=== PATIENT | male | born 1955 | race Caucasian/White ===

== ENCOUNTER 2016-10-14 08:29 | Day surgery (SDC) | payer OTHER ==
[~2016-10-14 08:29] MED LIST: IBUPROFEN200 MG PO; LORTAB 5/500 501 TAB PO; METOPROLOL50 MG PO; MOTRIN600 MG PO; ZIJA PO
--- NOTE | 2016-10-14 10:01 | Operative Note ---
Colonoscopy (Jerry) Procedure date: 10/14/16 Date of : 59 Procedure:Colonoscopy Colonoscopy with cold snare polypectomy Indications: Mr. Patel is a 60-year-old gentleman who is here for initial screening colonoscopy. He reports no abdominal pain, weight loss, change in his bowel habits or rectal bleeding. He does have some "slow" bowel function. The patient reports no family history of colon cancer. Performing Provider: Nubia Edwards MD Referrring Provider: Javed Cotton M.D. Sedation: Fentanyl 100 mg IV/Versed 7 mg IV Procedure: Prior to the procedure, a history and physical exam was performed, and patient medications and allergies were reviewed. The risks and benefits of the procedure and the sedation options and risks were discussed with the patient. All questions were answered and informed consent was obtained. Patient identification and proposed procedure were verified by the physician and the nurse. The patient was placed in a left lateral decubitus position. Throughout the procedure, the patient's blood pressure, pulse, and oxygen saturations were monitored continuously. Findings: On digital rectal examination there was normal rectal tone. There were no external hemorrhoids. The prostate was 2+, smooth, soft, symmetric without nodules. The colonoscope was introduced through the anal canal to the rectum and advanced to the cecum. The ileocecal valve and appendiceal orifice were identified. The scope was advanced a short distance into the ileum which appeared grossly normal. The scope was then withdrawn into the colon. There were 3 colon polyps identified in the ascending colon 3. These ranged in size from 4 -6 mm and were all removed via cold snare polypectomy. The remaining cecum, ascending, transverse, descending, sigmoid and rectum were grossly normal. There were no other mucosal abnormalities identified. Upon retroflexion within the rectum there were grade 1 internal hemorrhoids. Impressions: 1. Diminutive colonic polyps 3 2. Grade 1 internal hemorrhoids Recommendations: I will follow up the polyp pathology and recommend repeat colonoscopy again in 5 years based upon the polyp histology. I would encourage fiber supplementation on a long-term daily maintenance basis. Complications: None EBL (ml): 0 at 1000
[2016-10-14 15:17] VITALS: BP 125/59
== END 2016-10-14 10:53 | disposition home or self-care (01) ==
LOC: LAB 08:29 → SDC 08:29
PROVIDERS: Internal Medicine Gastroenterology
PROC: 0DBK8ZX Excision of Ascending Colon, Via Natural or Artificial Opening Endoscopic, Diagnostic (ICD-10-PCS; principal; 2016-10-14 09:30)
DX: Z12.11 Encounter for screening for malignant neoplasm of colon (principal); D12.2 Benign neoplasm of ascending colon; K64.0 First degree hemorrhoids
CPT/HCPCS: G0103

== ENCOUNTER 2017-02-15 21:35 | Observation (INO) | payer OTHER ==
[~2017-02-15] VITALS: Ht 180.3 cm; Wt 112.5 kg
[2017-02-15 21:40] VITALS: BP 155/93
[2017-02-15] MEDS ORDERED: HCTZ/TRIAMTEREN1 CAP PO (21:48)
[2017-02-15 22:03] LABS: HEMOGLOBIN 14.6 g/dL (14.1-18.0); LYMPH # 1.2 K/mm3 (0.7-4.5); LYMPH % 13.2 % (10-50)
--- OUTSIDE RECORDS SUMMARY | 2017-02-15 22:10 | External Medical Summary Rpt | CCD ---
Author Author DAMIAN Address Unknown Phone Purpose Continuity of Care Document - 10-14-2016 through 2016
--- OUTSIDE RECORDS SUMMARY | 2017-02-15 22:11 | External Medical Summary Rpt ---
Author Author DAMIAN Charlton, [employer] Organization [employer] Address Unknown Phone Unavailable Results Prostate specific Ag [Mass/volume] in Cerebral spinal fluid Observa Value Referen Units Interpr Notes Date tion ce etation Range Prostate 0.0 - 4.0 ng/mL High FREE PSA Oct 14 specific SUGGESTED 2016 8:59 Ag TO AID AM [Mass/vol DIAGNOSIS ume] in Cerebral spinal fluid
--- OUTSIDE RECORDS SUMMARY | 2017-02-15 22:11 | External Medical Summary Rpt | CCD ---
Author Author [employer] Organization [employer] Address Unknown Phone Unavailable Purpose Continuity of Care Document - through 2016
--- OUTSIDE RECORDS SUMMARY | 2017-02-15 22:11 | External Medical Summary Rpt | CCD ---
Demographics Preferred Language Citizen Of [place] Marital Status Unknown Christianity Affiliation Unknown Race Unknown Ethnic Group Unknown Author Author , DAMIAN SALGADO Address Unknown Phone Immunization No patient found.
--- OUTSIDE RECORDS SUMMARY | 2017-02-15 22:11 | External Medical Summary Rpt | CCD ---
Demographics Preferred Language Bahraini Marital Status Unknown Buddhism Affiliation Unknown Race Unknown Ethnic Group Unknown Author Author , DAMIAN SALGADO Address Unknown Phone Immunization No patient found.
--- NOTE | 2017-02-15 22:22 | Emergency Room Report ---
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 N Clinical Suspician of Infection? N Mental Status: 1 - Regular (Normal Baseline) Sepsis Risk:Low Sepsis Risk Have you (or family members/close friends) recently traveled outside the [place]? N If Yes, where/when: Have you had exposure to infectious disease within the past month? N TB? Other? Specify: Source patient, RN notes reviewed, family, old records Exam Limitations no limitations Comment pt with increasing rt upper abd pain with nausea with no melena and episode of vomiting Cardiac Chest Pain Chest pain indicative of cardiac No Timing/Duration this evening Severity moderate ALLERGIES Coded Allergies: cobalt (10/09/16) cocamidopropyl betaine (02/15/17) Uncoded Allergies: RUBBER (08/10/13) Home Medications Reported Medications Hydrochlorothiazide W/Triamter (Triamterene-Hctz 37.5-25 MG Tb) 1 CAP PO DAILY Ibuprofen (Ibuprofen 200MG) 200 MG PO PRN PRN . Metoprolol Tartrate (Metoprolol) (Unknown Dose) PO DAILY History Medical History General CAD? No Angina: No [place]: No Hypertension? Yes Hyperlipidemia? No CHF? No DVT? No PE? No COPD? No Asthma? No Anemia? No GERD? No Gastric ulcers? No GI Bleed? No Hernia? No Thyroid Problems? No Hypothyroidism? No CVA? No Seizures? No Diabetes? No Renal Insuffiency? No End Stage Renal Disease? No UTI? No Stones? No GB Disease: No Nephritic Syndrome? No Asplenia? No Hepatitis? No Sickle Cell Disease? No Arthritis? Yes Migraines? No Cataracts? No Glaucoma? No MRSA? No HIV? No TB? No Anxiety? No Depression? No Cancer? No More? No Immunization Hx DT/Tetanus NOT SURE Surgical Hx Previous Surgery?Y Back Surgery APPENDECTOMY Family History Family Hx Diabetes Yes Hypertension Yes Hyperlipidemia Yes Cancer Yes TB Yes Social History Smoking Hx Smoker: Never Smoker Tobacco: No Packs/day < 1 Pack Alcohol Alcohol: No Drugs none Review of Systems All Other Systems Reviewed and Negative Constitutional denies fever Eyes denies drainage ENT denies: ear discharge, epistaxis, throat pain. Respiratory denies cough, denies shortness of breath, denies wheezing Cardiovascular denies chest pain, denies syncope Gastrointestinal see HPI, abdominal pain, denies diarrhea, nausea, denies vomiting Genitourinary denies: dysuria, frequency, hesitancy, hematuria. Musculoskeletal denies back pain, denies joint pain, denies joint swelling, denies neck pain Skin denies rash Psychiatric/Neurological denies headache, denies seizure Physical Exam Vital Signs Vital Signs Date Time Temp Pulse Resp B/P Pulse O2 O2 Flow FiO2 Ox Delivery Rate 02/15 2253 60 20 147/84 95 02/15 2225 20 02/15 2140 98.3 61 18 155/93 99 - WBC >12,000 or <4,000 or 10% bands? 2 or more SIRS Criteria Met? B/P:147/84 MAP:113 Creatinine >2.0? UA output<0.5ml/kg/hr for 2 hrs? Platelet count >100,000? Lactate >2.0mmol/1? INR >1.2 or PTT > than 60 sec? Evidence of Organ Dysfunction? Provider documented clinical suspician of infection? N Sepsis Criteria Count: 0 Sepsis Risk: Low Sepsis Risk General Appearance no apparent distress Eye Exam - bilateral eye PERRL, bilateral eye EOMI Ear, Nose, Throat normal ENT inspection Neck supple Respiratory Status No: respiratory distress. Lung Sounds bilateral: lungs clear. Cardiovascular regular rate/rhythm, systolic murmur Peripheral Pulses Pulses normal Yes Gastrointestinal soft, no organomegaly, no pulsatile mass, no guarding, no rebound, tenderness, pos murphys sign Back no CVA tenderness Extremities normal inspection Strength 4 Upper Ext (L), 4 Upper Ext (R), 4 Lower Ext (L), 4 Lower Ext (R) Neurologic alert, informatica architect II-XII nml as tested, no motor/sensory deficits Reflexes Reflexes normal Yes Mental status normal mood/affect Skin intact Medical Decision Making LABS/Meds/Orders Pt receiving controlled substance in ED? No Results/Orders Laboratory Tests 02/15/172152: Troponin I < 0.02 02/15/172152: Sodium 133 L, Potassium 3.4 L, Chloride 98, Carbon Dioxide 27, BUN 15, Creatinine 1.2, Estimated Creat Clear 108, Estimated GFR (MDRD) 62, Glucose 125 H, Calcium 9.3, Total Bilirubin 0.5, AST 24, ALT 40, Alkaline Phosphatase 64, Total Protein 7.7, Albumin 4.0, Globulin 3.7 H, Albumin/Globulin Ratio 1.1, Amylase 87, Lipase 368, WBC 9.0, RBC 4.78, Hgb 14.6, Hct 41.3 L, MCV 86.4, RDW 12.6, Plt Count 306, MPV 8.1, Gran % 78.3, Gran # 7.1, Lymphocytes % 13.2, Monocytes % 6.0, Eosinophils % 2.1, Basophils % 0.4, Lymphocytes # 1.2, Monocytes # 0.5, Eosinophils # 0.2, Basophils # 0.0, PUBS MCHC 35.4, MCH 30.6 Current Medication Orders Sig/Rosio Start time Last Medication Dose Route Stop Time Status Admin Famotidine 20 MG ONCE ONE 02/155 DC IV 02/15 2346 Metoclopramide HCl 10 MG ONCE ONE 02/15 2345 DC IVP 02/15 2346 Sodium Chloride 8 ML ONCE ONE 02/15 2345 DC IV 02/15 2346 Hydromorphone HCl 1 MG ONCE ONE 02/15 2230 DC 02/15 IV 02/15 2231 2225 Promethazine HCl 12.5 MG ONCE ONE 02/15 2230 DC 02/15 IV 02/15 2231 2244 Sodium Chloride 25 ML ONCE ONE 02/15 2230 DC 02/15 IV 02/15 2244 2244 Hydromorphone HCl 0 .STK-MED ONE 02/16 2224 DC .ROUTE Sodium Chloride 25 ML .STK-MED ONE 02/16 2224 DC IV Promethazine HCl 0 .STK-MED ONE 02/15 2223 DC .ROUTE Ondansetron HCl 4 MG ONCE ONE 02/15 2215 DC 02/15 IV 02/16 2216 221 Ondansetron HCl 0 .STK-MED ONE 02/15 2214 DC .ROUTE Ondansetron HCl 0 .STK-MED ONE 02/16 2212 DC .ROUTE Sodium Chloride 10 ML PRN PRN 02/15 2200 AC IV 02/16 2150 Orders Procedure Date/time Status DIET-NOTHING BY MOUTH 02/16 B Active Decision to admit 02/[address] ABD & PELVIS W/O CONTRAST 02/15 2206 Active TROPONIN I 02/[address] ABD/PELVIS REQ 02/15 2151 Active IV SALINE LOCK 02/15 2151 Active URINALYSIS/COMPLETE 02/15 2151 Active LIPASE 02/15 2151 Complete CBC WITH AUTO DIFF 02/15 2151 Complete CHEM 12 PROFILE 02/15 2151 Complete AMYLASE 02/15 2151 Complete XRAY/CT/US XRAY/CT/US CT abdomen, pelvis CT interpretation by discussed w/radiologist Time results known: 2336 CT Results normal/NAD Departure Departure Time of Disposition 2342 Disposition Still a Patient Clinical Impression Primary Impression: Abdominal pain Qualifiers: Abdominal location: right upper quadrant Qualified Code: R10.11 - Right upper quadrant pain Condition STABLE Referrals Jayden Cotton MD (Family) discussed with dr hua ED Critical Care Critical Care No at [id number]
--- OUTSIDE RECORDS SUMMARY | 2017-02-15 23:54 | External Medical Summary Rpt | CCD ---
Demographics Preferred Language Monegasque Marital Status Unknown Sabianist Affiliation Unknown Race Unknown Ethnic Group Unknown Author Author , DAMIAN SALGADO Address Unknown Phone Immunization No patient found.
--- OUTSIDE RECORDS SUMMARY | 2017-02-15 23:54 | External Medical Summary Rpt | CCD ---
Demographics Preferred Language Niuean Marital Status Unknown Zoroastrianism Affiliation Unknown Race Unknown Ethnic Group Unknown Author Author , DAMIAN SALGADO Address Unknown Phone Immunization No patient found.
--- OUTSIDE RECORDS SUMMARY | 2017-02-15 23:54 | External Medical Summary Rpt | CCD ---
Author Author , DAMIAN Organization [employer] Address Unknown Phone Purpose Continuity of Care Document - 10-14-2016 through 2016 Results Labs Lab Lab Date Result Refere Interp Status Commen Order Detail nces retati t Range on CBC w auto diff (02-15-2017 21:53) Automat = 0.0 0-0.2 complet ed 017 K/MM3 ed blood 21:53 basophi l count (count/ vo Baso % = 0.4 % 0.1-2.0 complet 017 ed 21:53 Automat = 0.2 0.0-0.4 complet ed 017 K/mm3 ed blood 21:53 eosinop hil count Automat = 2.1 % 0.1-12. complet ed 017 0 ed blood 21:53 eosinop hils/10 0 leukocy t Blood = 7.1 1.3-8.0 complet granulo 017 K/mm3 ed cytes 21:53 automat ed count (numb Granulo = 78.3 37.0-80 complet cyte 017 % .0 ed percent 21:53 age Blood = 41.3 42.0-52 complet hematoc 017 % .0 ed rit 21:53 (volume fractio n) Blood = 14.6 14.1-18 complet hemoglo 017 g/dL .0 ed bin 21:53 measure ment (mass/v olum Absolut = 1.2 0.7-4.5 complet e 017 K/mm3 ed lymphoc 21:53 yte count Lymphoc = 13.2 10-50 complet yte 017 % ed count, 21:53 blood, automat ed Mean = 30.6 27-31.2 complet corpusc 017 pg ed ular 21:53 hemoglo bin (MCH) determ Automat = 35.4 31.8-35 complet ed 017 g/dl .4 ed erythro 21:53 cyte mean corpusc ular h Automat = 86.4 82.2-97 complet ed 017 fl .8 ed erythro 21:53 cyte mean corpusc ular v Absolut = 0.5 0.1-1.0 complet e 017 K/mm3 ed monocyt 21:53 e count Jack % = 6.0 % 1.7-9.3 complet 017 ed 21:53 Automat 2 = 8.1 7.4-10. complet ed 017 fl 4 ed blood 21:53 platele t mean volume judy Blood = 306 142-424 complet platele 017 K/mm3 ed t count 21:53 Red = 4.78 4.6-6.2 complet blood 017 M/mm3 ed cell 21:53 count Automat = 12.6 11.5-17 complet ed 017 % .5 ed erythro 21:53 cyte distrib ution width Blood = 9.0 4.8-10. complet leukocy 017 K/MM3 8 ed elmo 21:53 count (number /volume ) Amylase ser/plas (02-15-2017 21:53) Amylase 2 = 87 25-115 complet 017 U/L ed ser/ioana 21:53 s Comprehensive metabolic panel (02-15-2017 21:53) Serum 02-15-2 = 1.1 1.1-1.8 complet or 017 ed plasma 21:53 albumin /globul in mass ra Serum 2 = 4.0 3.4-5.0 complet or 017 gm/dL ed plasma 21:53 albumin measure ment (mas Serum 02-15-2 = 64 46-116 complet or 017 U/L ed plasma 21:53 alkalin e phospha tase judy Serum 2 = 0.5 0.2-1.0 complet or 017 mg/dL ed plasma 21:53 total bilirub in measure m Serum 2 = 15 7-18 complet or 017 mg/dL ed plasma 21:53 urea nitroge n measure men Serum 11-18-2 = 9.3 8.5-10. complet or 017 mg/dL 1 ed plasma 21:53 calcium measure ment (mas Serum 18-2 = 98 98-107 complet or 017 mmoL/L ed plasma 21:53 chlorid e measure ment (mo Carbon 02-15-2 = 27 21.0-32 complet dioxide 017 mmoL/L .0 ed 21:53 measure ment Serum 18-2 = 1.2 0.70-1. complet or 017 mg/dL 30 ed plasma 21:53 creatin ine measure ment ( Estimat 02-15-2 = 108 50-200 complet ion of 017 ML/MIN ed creatin 21:53 ine renal clearan ce Estimat 2 = 62 >60 complet ed 017 ML/MIN ed glomeru 21:53 lar filtrat ion rate (GF Comment: REFERENCE RANGE: >60 ML/MIN/1.73 SQUARE METERS Comment: If this patient is -[place]imbabwean, then multiply the Comment: result by 1.210. Serum 18-2 = 3.7 1.3-3.2 complet globuli 017 gm/dL ed n 21:53 measure ment (mass/v olume) Serum 18-2 = 125 74-106 complet or 017 mg/dL ed plasma 21:53 glucose measure ment (mas Serum 02-15-2 = 3.4 3.5-5.1 complet potassi 017 mmoL/L ed um 21:53 measure ment Serum 18-2 = 133 136-145 complet sodium 017 mmoL/L ed measure 21:53 ment Serum 02-15-2 = 24 15-37 complet or 017 U/L ed plasma 21:53 asparta te aminotr ansfera ALT 02-15-2 = 40 12-78 complet (SGPT) 017 U/L ed ser/ioana 21:53 s Protein 02-15-2 = 7.7 6.4-8.2 complet total 017 gm/dL ed ser/ioana 21:53 s Lipase measurement (02-15-2017 21:53) Lipase -18-2 = 368 73-393 complet measure 017 U/L ed ment 21:53 Serum or plasma troponin i.cardiac measu (02-15-2017 21:53) Serum 11-18-2 < 0.02 0.00-0. complet or 017 ng/mL 06 ed plasma 21:53 nitin martinez i.cardi ac measu
--- OUTSIDE RECORDS SUMMARY | 2017-02-15 23:54 | External Medical Summary Rpt | CCD ---
Author Author , DAMIAN Organization [facility] Address Unknown Phone [email or web address] Purpose Continuity of Care Document - 10-14-2016 [...] 017 K/mm3 ed monocyt 21:53 e count [place] % = 6.0 % 1.7-9.3 complet 017 [...] SQUARE METERS Comment: If this patient is -[place]uneian, then multiply the Comment: result by 1.210. [...]
--- OUTSIDE RECORDS SUMMARY | 2017-02-15 23:55 | External Medical Summary Rpt ---
Author Author SAMLIVIER Charlton, [employer] Organization [employer] Address Unknown Phone Unavailable Results Amylase [Enzymatic activity/volume] in Serum or Plasma Observa Value Referen Units Interpr Notes Date tion ce etation Range Amylase 25 - 115 U/L Normal No Feb 15 [Enzymati informati 2017 9:53 c on in PM activity/ source volume] data in Serum or Plasma Comprehensive metabolic 2000 panel in Serum or Plasma Observa Value Referen Units Interpr Notes Date tion ce etation Range Albumin/G 1.1 - 1.8 No Normal No Feb 15 lobulin informati informati 2016 9:53 [Mass on in on in PM ratio] in source source Serum or data data Plasma Albumin 3.4 - 5.0 gm/dL Normal No Feb 15 [Mass/vol informati 2016 9:53 ume] in on in PM Serum or source Plasma data Alkaline 46 - 116 U/L Normal No Feb 15 phosphata informati 2016 9:53 se on in PM [Enzymati source c data activity/ volume] in Serum or Plasma Bilirubin 0.2 - 1.0 mg/dL Normal No Feb 15 .total informati 2016 9:53 [Mass/vol on in PM ume] in source Serum or data Plasma Urea 7 - 18 mg/dL Normal No Feb 15 nitrogen informati 2016 9:53 [Mass/vol on in PM ume] in source Serum or data Plasma Calcium 8.5 - mg/dL Normal No Feb 15 [Mass/vol 10.1 informati 2017 9:53 ume] in on in PM Serum or source Plasma data Chloride 98 - 107 mmoL/L Normal No Feb 15 [Moles/vo informati 2016 9:53 lume] in on in PM Serum or source Plasma data Carbon 21.0 - mmoL/L Normal No Feb 15 dioxide, 32.0 informati 2017 9:53 total on in PM [Moles/vo source lume] in data Serum or Plasma Creatinin 0.70 - mg/dL Normal No Feb 15 e 1.30 informati 2017 9:53 [Mass/vol on in PM ume] in source Serum or data Plasma Creatinin 50 - 200 ML/MIN Normal No Feb 15 e renal informati 2016 9:53 clearance on in PM source predicted data by Cockcroft -Gault formula Estimated >60 ML/MIN No REFERENCE Feb 15 informati RANGE: 2017 9:53 glomerula on in >60 PM r source ML/MIN/1. filtratio data 73 SQUARE n rate METERSIf (GF this patient is -A merican, then multiply theresult by 1.210. Globulin 1.3 - 3.2 gm/dL High No Feb 15 [Mass/vol informati 2016 9:53 ume] in on in PM Serum source data Glucose 74 - 106 mg/dL High Feb 15 [Mass/vol informati 2016 9:53 ume] in on in PM Serum or source Plasma data Potassium 3.5 - 5.1 mmoL/L Low No Feb 15 informati 2016 9:53 [Moles/vo on in PM lume] in source Serum or data Plasma Sodium 136 - 145 mmoL/L Low No Feb 15 [Moles/vo informati 2016 9:53 lume] in on in PM Serum or source Plasma data Aspartate 15 - 37 U/L Normal No Feb 15 informati 2016 9:53 aminotran on in PM sferase source [Enzymati data c activity/ volume] in Serum or Plasma Alanine 12 - 78 U/L Normal No Feb 15 aminotran informati 2016 9:53 sferase on in PM [Enzymati source c data activity/ volume] in Serum or Plasma Protein 6.4 - 8.2 gm/dL Normal Feb 15 [Mass/vol informati 2016 9:53 ume] in on in PM Serum or source Plasma data Lipase [Enzymatic activity/volume] in Serum or Plasma Observa Value Referen Units Interpr Notes Date tion ce etation Range Lipase 73 - 393 U/L Normal No Feb 15 [Enzymati informati 2016 9:53 c on in PM activity/ source volume] data in Serum or Plasma CBC W Auto Differential panel in Blood Observa Value Referen Units Interpr Notes Date tion ce etation Range Basophils 0 - 0.2 K/MM3 Normal No Feb 15 informati 2016 9:53 [#/volume on in PM ] in source Blood by data Automated count Basophils 0.1 - 2.0 % Normal No Feb 15 informati 2016 9:53 leukocyte on in PM s in source Blood by data Automated count Eosinophi 0.0 - 0.4 K/mm3 Normal No Feb 15 ls informati 2016 9:53 [#/volume on in PM ] in source Blood by data Automated count Eosinophi 0.1 - % Normal No Feb 15 ls/100 12.0 informati 2016 9:53 leukocyte on in PM s in source Blood by data Automated count Granulocy 1.3 - 8.0 K/mm3 Normal No Feb 15 elmo informati 2016 9:53 [#/volume on in PM ] in source Blood by data Automated count Granulocy 37.0 - % Normal No Feb 15 elmo/100 80.0 informati 2016 9:53 leukocyte on in PM s in source Blood by data Automated count Hematocri 42.0 - % Low No Feb 15 t [Volume 52.0 informati 2016 9:53 on in PM Fraction] source of Blood data Hemoglobi 14.1 - g/dL Normal No Feb 15 n 18.0 informati 2016 9:53 [Mass/vol on in PM ume] in source Blood data Lymphocyt 0.7 - 4.5 K/mm3 Normal No Feb 15 es informati 2016 9:53 [#/volume on in PM ] in source Unspecifi data ed specimen by Automated count Lymphocyt 10 - 50 % Normal No Feb 15 es informati 2016 9:53 [#/volume on in PM ] in source Unspecifi data ed specimen by Automated count Erythrocy 27 - 31.2 pg Normal No Feb 15 te mean informati 2016 9:53 corpuscul on in PM ar source hemoglobi data n [Entitic mass] Erythrocy 31.8 - g/dl Normal No Feb 15 te mean 35.4 informati 2016 9:53 corpuscul on in PM ar source hemoglobi data n concentra tion [Mass/vol ume] by Automated count Erythrocy 82.2 - fl Normal No Feb 15 te mean 97.8 informati 2016 9:53 corpuscul on in PM ar volume source [Entitic data volume] by Automated count Monocytes 0.1 - 1.0 K/mm3 Normal No Feb 15 informati 2016 9:53 [#/volume on in PM ] in source Blood by data Automated count Monocytes 1.7 - 9.3 % Normal No Feb 15100 informati 2017 9:53 leukocyte on in PM s in source Blood by data Automated count Platelet 7.4 - fl Normal No Feb 15 mean 10.4 informati 2017 9:53 volume on in PM [Entitic source volume] data in Blood by Automated count Platelets 142 - 424 K/mm3 Normal No Feb 15 informati 2017 9:53 [#/volume on in PM ] in source Blood data Erythrocy 4.6 - 6.2 M/mm3 Normal No Feb 15 elmo informati 2016 9:53 [#/volume on in PM ] in source Amniotic data fluid Erythrocy 11.5 - % Normal No Feb 15 te 17.5 informati 2017 9:53 distribut on in PM ion width source [Entitic data volume] by Automated count Leukocyte 4.8 - K/MM3 Normal No Feb 15 s 10.8 informati 2016 9:53 [#/volume on in PM ] in source Blood data Prostate specific Ag [Mass/volume] in Cerebral spinal fluid Observa Value Referen Units Interpr Notes Date tion ce etation Range Prostate 0.0 - 4.0 ng/mL High FREE PSA Oct 14 specific SUGGESTED 2017 8:59 Ag TO AID AM [Mass/vol DIAGNOSIS ume] in Cerebral spinal fluid
[2017-02-16] VITALS (8 sets, daily range): BP systolic 115–160; BP diastolic 47–99
[2017-02-16] MEDS ORDERED: METOPROLOL25 MG PO (05:37)
[2017-02-16 06:15] LABS: HEMOGLOBIN 14.6 g/dL (14.1-18.0); LYMPH # 0.5 K/mm3 (0.7-4.5); LYMPH % 4.9 % (10-50)
[2017-02-16 06:50] LABS: NEUTROPHILS 78 % (42-76)
--- NOTE | 2017-02-16 11:49 | RADIOLOGY REPORT PS360 ---
US RUQ-(ABD LTD)1ORGAN/QUAD/FU Ordering Physician: Jayden Cotton MD Patient Age: 61 years: Male HISTORY: RUQ abd pain nausea vomiting epigastric pain TECHNIQUE: Ultrasound right upper quadrant COMPARISON :CT abdomen pelvis from yesterday 02/15/2017 as well as 07/14/2013 FINDINGS PANCREAS:. Unremarkable. No fluid collections no ductal dilatation. LIVER.: No focal lesions. Subtle fatty liver changes throughout. No definitive biliary ductal dilatation. Upper normal Central biliary ducts Generous COMMON DUCT/borderline dilated, measuring 7.2 mm at hilum of liver. Borderline dilated GALLBLADDER.: Images suggest shadowing Gallstone at deep into the neck of gallbladderThis region difficult to image given is position at neck of gallbladder..- This suspect gallstone measures 1.5- 1.7 cm. .... Diffuse prominent gallbladder wall thickening noted as was also suggested on CT.... On ultrasound gallbladder wall measuring 5 up to 6 mm, in some areas. Also appears to be a scant developing pericholecystic fluid at anterior gallbladder fossa,-between gallbladder & liver. Generous thick sludge also noted layering at dependent gallbladder... Suggest follow-up bilirubin and alkaline phosphatase RIGHT KIDNEY 11.2 cm length. Cortex well-maintained with no hydronephrosis or mass. IMPRESSION: -------- 1. Images suggest Gallstone deep at the neck of gallbladder-. Difficult to visualize region of the gallbladder neck but suspect shadowing due to over 1.5 cm stone deep into neck of gallbladder.... Also prominent thick sludge at gallbladder noted . 2.*Diffuse gallbladder wall thickening. Suspect early pericholecystic fluid.-Overall features suggesting developing Acute CHOLECYSTITIS.. . 3. Generous caliber Common duct, borderline/mild dilatation 7.2 mm hilum of liver . No definite intrahepatic bili ductal dilatation otherwise evident (Follow-up alkaline phosphatase & bilirubin laboratory suggestedWith the above findings)
--- NOTE | 2017-02-16 12:12 | RADIOLOGY REPORT PS360 ---
CT ABD PELVIS W/O CONTRAST Ordering Physician: Jayden Cotton MD Patient Age: 61 years: Male HISTORY: PAIN Nausea vomiting epigastric pain. Prior Appendectomy TECHNIQUE: Helical CT scanning performed at of pelvis with no oral nor IV contrast utilized. Sagittal coronal reconstructions on CT workstation neck field COMPARISON :June 2013 CT abdomen pelvis. FINDINGS Lung bases appear clear with no active disease. Heart normal size. Tiny stable 4 mm nodular density at the right middle lobe axial image 8 no significant change since 2014. Support benign character. Small less than 5 mm Calcified granuloma axial image 15 RML just above right hemidiaphragm anteriorly. Abdomen pelvis with the lack of oral and IV contrast decreases sensitivity. Gallbladder: [Suggestion of diffuse gallbladder wall thickening, with slightly hazy appearance the wall. Appearance Raises concern regarding developing cholecystitis. No calcified stones are identified by CT but suspect sludge. Gallbladder mildly distended measuring 10 cm maximum length.. Axial image 49, 48. Recommend gallbladder ultrasound. Liver. No significant findings. No intra-axial bili ductal dilatation.. No change since 2014. Pancreas. Stable. Unremarkable. Adrenals unremarkable spleen. Spleen: Borderline to mild splenomegaly.. 16 cm AP x 14 cm length X 7 cm transverse.. But no change in the spleen since 2014 tract Kidneys. No urinary tract calculi nor obstruction Urinary bladder unremarkable. Enlarged prostate measures nearly 6.5 cm cm transverse . No retroperitoneal nor mesenteric nor pelvic adenopathy. GI TRACT.. A 6 x 8 mm calcification just adjacent to the base the appendix noted but it does not appear to be within the appendix. More likely calcified node rather than appendicolith. The appendix itself is brody.. No inflammation here. Minimal stool is seen throughout the large bowel. Small bowel unremarkable. Stomach unremarkable. Upper normal wall thickness distal esophagus/GE junction. Osseous. Degenerative disc space narrowing and spondylosis. L5/S1 again noted similar to previous study as is the spinal stenosis at L4/5 due to spondylotic disc and generous posterior element hypertrophy. . IMPRESSION: ...... 1.. Suspect developing cholecystitis. Mildly dilated gallbladder w/ diffuse slightly hazy gallbladder wall thickening. No calcified stones evident by CT but notable sludge in gallbladder. Recommend gallbladder ultrasound. . 2. Other nonacute observations: ... Enlarged prostate warrants correlation ..... Borderline to minor splenomegaly with no significant change ... Lumbar spondylosis with developing spinal stenosis L4/5 Sury:. Sent to [facility] [place] [facility] discrepancies. (Gallbladder findings.)
--- NOTE | 2017-02-16 12:18 | PHARMACY CLINIC NOTE ---
Patient Demographics Patient Demographics Admission date: 02/16/17 Date: 02/16/17 Time: 1217 Allergies Coded Allergies: cobalt (10/09/16) cocamidopropyl betaine (02/15/17) Uncoded Allergies: RUBBER (08/10/13) HEIGHT- FT: 5 IN: 11.00 K.521 VTE General Information Labs: Laboratory Tests 02/16 02/15 0550 2153 Hematology Hgb (14.1 - 18.0 g/dL) 14.6 14.6 Hct (42.0 - 52.0 %) 43.1 41.3 L Plt Count (142 - 424 K/mm3) 274 306 Disclaimer The following section includes nursing documentation that has been pulled in for pharmacy review. Patient's VTE score: 2 Patient's VTE Risk: VERY LOW RISK Clinical trial participant? No VTE prophylaxis [id number] VTE prophylaxis ordered? Yes Type of prophylaxis/treatment: MARLA at 1217
--- NOTE | 2017-02-16 13:57 | ACUTE CARE PROGRESS NOTE (QUA) ---
Progress Notes Subjective Date 02/16/17 Time 1354 Note Admitted with RUQ abdominal pain. US today suggests stone in gallbladder neck and cholecystitis. circulation tender RUQ. Objective Findings Last VS-Temp:98.2 B/P:133/47 Pulse:72 Resp:20 SaO2:97 ROOM AIR Last weight lbs:248 oz:1 K.521 Method:Bed Scales Exam General appearance: alert, no acute distress Cardiovascular: regular rate & rhythm Respiratory: wearing CPAP ABD: soft, tenderness (RUQ) Assessment/Plan Problem List 1. Abdominal pain 2. Cholecystitis with cholelithiasis Patient condition Stable Plan: consult surgeon This inpt stay is expected to cross 2 MNs from start of care Yes at 1262
--- NOTE | 2017-02-16 13:57 | ACUTE CARE PROGRESS NOTE (QUA) ---
Progress Notes Subjective Date 02/16/17 Time 1354 Note Admitted with RUQ abdominal pain. US today suggests stone in gallbladder neck and cholecystitis. unit tender RUQ. Objective Findings Last VS-Temp:98.2 B/P:133/47 Pulse:72 Resp:20 SaO2:97 ROOM AIR Last weight lbs:248 oz:1 K.521 Method:Bed Scales Exam General appearance: alert, no acute distress Cardiovascular: regular rate & rhythm Respiratory: wearing CPAP ABD: soft, tenderness (RUQ) Assessment/Plan Problem List 1. Abdominal pain 2. Cholecystitis with cholelithiasis Patient condition Stable Plan: consult surgeon This inpt stay is expected to cross 2 MNs from start of care Yes at 3576
--- NOTE | 2017-02-16 14:34 | HISTORY AND PHYSICAL REPORT ---
History and Physical ([facility]) Date of admission: 02/16/17 Chief complaint: Abdominal pain History: History of Present Illness: 61 year old male patient of [facility] presented to the ER of [facility] complaining of a 3 or 4 day history of upper abdominal pain. The pain starts in the middle of his upper abdomen and radiates to the right side. It seems to be worse after he eats and he has had some nausea and vomited once. Patient has had no previous episodes. Past Medical History: Medical History: CAD? No Angina: No MT: No Hypertension? Yes Hyperlipidemia? No CHF? No DVT? No PE? No COPD? No Asthma? No Anemia? No GERD? No Gastric ulcers? No GI Bleed? No Hernia? No Thyroid Problems? No Hypothyroidism? No CVA? No Seizures? No Diabetes? No Renal Insuffiency? No UTI? No Stones? No GB Disease: No Nephritic Syndrome? No Asplenia? No Hepatitis? No Sickle Cell Disease? No Arthritis? Yes Migraines? No Cataracts? No Glaucoma? No MRSA? No HIV? No TB? No Anxiety? No Depression? No Cancer? No More? Yes Additional hx: Sleep apnea Surgical history: Previous Surgery?Y Back Surgery APPENDECTOMY Medications: Reported Medications Hydrochlorothiazide W/Triamter (Triamterene-Hctz 37.5-25 MG Tb) 1 TAB PO DAILY Metoprolol Tartrate (Metoprolol) 50 MG PO DAILY Ibuprofen (Ibuprofen 200MG) 200 MG PO PRN PRN PAIN Allergies: Coded Allergies: cobalt (10/09/16) cocamidopropyl betaine (02/15/17) Uncoded Allergies: RUBBER (08/10/13) Family History: Family history: Postive for: DM, HTN. Social History: Smoking Hx Tobacco: No Smoker: Former Smoker Type: Cigarettes Packs/day: 1 1/2 - 2 Packs Are you exposed to second hand No Alcohol: Alcohol: No Hx of Drug Use: Drug Use? No Review of Systems: Patient unresponsive? No Constitutional No: chills. ENT No: hearing loss. Cardiovascular No: chest pain. Respiratory No: productive cough (sputum). GI No: diarrhea. (male) No: frequency. Skin No: rash. Neurological No: dizziness. Eyes No: discharge. Musculoskeletal No: joint pain. Psychiatric No: insomnia. Physical Exam: Vital signs: 1ST Vital Signs Result Date Time Pulse Ox 99 02/16 2140 B/P 155/93 02/16 2140 Temp 98.3 02/16 2140 Pulse 61 02/16 2140 Resp 18 02/16 2140 O2 Delivery ROOM AIR 02/16 50 Exam: General appearance: alert, awake, no acute distress Eyes: anicteric, conjunctiva clear ENT: mucous membranes moist Neck: supple Cardiovascular: regular rate & rhythm Respiratory: chest non-tender ABD: normal bowel sounds, soft, tenderness (RUQ) Extremities: no peripheral edema Skin: normal color, warm Neuro: intact, no focal deficit Radiology results: Results: RUQ U/S abnormal Diagnosis(es): 1. Abdominal pain Status: Acute 2. Cholecystitis with cholelithiasis Status: Acute 3. Nausea & vomiting Status: Acute 4. HTN (hypertension) Status: Chronic 5. Sleep apnea Status: Chronic Plan: Patient admitted for further treatment, surgery consulted due to abnormal RUQ U/ S, will give clear liquids now. at 1433
--- NOTE | 2017-02-16 15:53 | CONSULT NOTE ---
See Addendum Standard Demographics Patient Demo Date of Consultation: 02/16/17 Referring Provider: Homer Segovia MD Reason for Consultation: calculus cholecystitis PRIMARY DIAGNOSIS: ABDOMINAL PAIN Allergies: Coded Allergies: cobalt (10/09/16) cocamidopropyl betaine (02/15/17) Uncoded Allergies: RUBBER (08/10/13) History of Present Illness Chief Complaint: Upper abdominal pain and sinus infection History of Present Illness: This is a 61-year-old gentleman seen in consultation from Dr. Segovia for evaluation regarding acute cholecystitis. His primary care provider is Dr. Cotton. He was admitted after presenting to the emergency department with increasing pain in the upper abdomen, intermittent nausea, and a worsening sinus infection. He states that his symptoms have been progressing over the past 3-4 days. No jaundice. No fevers. One episode of emesis. Evaluation has included a CT scan, as well as an ultrasound that revealed mild gallbladder wall thickening and a likely 1.7 cm stone in the neck the gallbladder. His white blood cell count has been normal; however, he does have somewhat of a LEFT shift. Liver function tests, amylase, and lipase are all normal. Past Medical History Reports: hypertension. Surgical History Previous Surgery?Y Back Surgery APPENDECTOMY Allergies Coded Allergies: cobalt (10/09/16) cocamidopropyl betaine (02/15/17) Uncoded Allergies: RUBBER (08/10/13) Medications: Reported Medications Hydrochlorothiazide W/Triamter (Triamterene-Hctz 37.5-25 MG Tb) 1 TAB PO DAILY Metoprolol Tartrate (Metoprolol) 50 MG PO DAILY Ibuprofen (Ibuprofen 200MG) 200 MG PO PRN PRN PAIN Family history Postive for: DM, HTN. Smoking Hx Tobacco: No Smoker: Former Smoker Type: Cigarettes Packs/day: 1 1/2 - 2 Packs Are you/the child exposed to second-hand smoke: No Alcohol Alcohol: No Hx of Drug Use Drug Use? No Review of Systems Constitutional No: chills. Skin No: bruising. Immune/allergy No: anaphalaxis. Eyes No: blurry vision. ENT Positive for: nasal congestion, sinus problems. Respiratory No: pneumonia. Cardiovascular No: palpitations. GI No: dysphagia, hematemeis, hematochezia. (male) No: hematuria. Heme No: petechia. Endocrine No: polydipsia. Neurological No: change in LOC. Psychiatric No: anxious. Physical Exam VS/I&O Vital Signs Date Time Temp Pulse Resp B/P Pulse O2 O2 Flow FiO2 Ox Delivery Rate 02/16 1541 99.6 84 20 145/99 95 ROOM AIR 02/16 0836 20 02/16 0800 98.2 72 20 133/47 97 02/16 0754 98.2 72 20 133/47 97 ROOM AIR 02/16 0500 98.4 68 20 160/89 95 ROOM AIR 02/16 0323 18 02/16 0121 98.3 63 18 158/73 02/16 0050 63 02/16 0050 99 ROOM AIR 02/16 0050 97.5 65 18 144/86 97 ROOM AIR 02/16 0036 98.3 63 18 158/73 99 02/16 0005 98.3 63 18 158/73 99 02/15 2253 60 20 147/84 95 02/15 2225 20 02/15 2140 98.3 61 18 155/93 99 I&O 02/16 0700 Intake Total 45 Output Total Balance 45 Intake, IV 45 Patient 112.521 kg Weight Exam General appearance no acute distress Respiratory no distress Cardiovascular regular rate and rhythm Abdomen soft (TTP in RUQ/RMQ/Epigastrum) Plan Plan: Impression: Developing acute calculus cholecystitis Sinus infection Plan: Cholecystectomy in the near future. The patient does not require emergent surgery; however, he would likely benefit from intervention within the week ( within 48-72 hours preferable). Continue antibiotic coverage for cholecystitis and for concomitant (possible bacterial) sinus infection. at 1552
[2017-02-17 04:43] VITALS: BP 117/66
--- NOTE | 2017-02-17 07:38 | SURGEON PROGRESS NOTE ---
Subjective data Subjective data: Still "sore" and in "a bit of pain"; however, he states that his "belly is better". He states that he "want(s) to go home". Objective data Vitals,I&O,and Labs: Vital signs, intake and output,and available lab data for the last 24 hours is as noted below. Vital Signs Date Time Temp Pulse Resp B/P Pulse O2 O2 Flow FiO2 Ox Delivery Rate 02/17 0443 97.9 71 18 117/66 95 ROOM AIR 02/16 2127 99.4 85 18 115/76 97 02/16 2038 99.4 85 18 115/76 97 ROOM AIR 02/16 1541 99.6 84 20 145/99 95 ROOM AIR 02/16 0836 20 02/16 0800 98.2 72 20 133/47 97 02/16 0754 98.2 72 20 133/47 97 ROOM AIR 02/16 1500 02/16 2300 02/17 0700 Intake Total 1318 Output Total Balance 1318 Intake, IV 1318 Laboratory Tests Test Result Date Time Chemistry Sodium (mmoL/L) 140 02/16 0550 Potassium (mmoL/L) 3.6 02/16 0550 Chloride (mmoL/L) 100 02/16 0550 Carbon Dioxide (mmoL/L) 29 02/16 0550 BUN (mg/dL) 14 02/16 0550 Creatinine (mg/dL) 1.1 02/16 0550 Estimated Creat Clear (ML/MIN) 115 02/16 0550 Estimated GFR (MDRD) (ML/MIN) 69 02/16 0550 Glucose (mg/dL) 136 02/16 0550 Calcium (mg/dL) 9.2 02/16 0550 Total Bilirubin (mg/dL) 0.5 02/15 2153 AST (U/L) 24 02/15 2153 ALT (U/L) 40 02/15 2153 Alkaline Phosphatase (U/L) 64 02/15 2153 Troponin I (ng/mL) < 0.02 02/15 2153 Total Protein (gm/dL) 7.7 02/15 2153 Albumin (gm/dL) 4.0 02/15 2153 Globulin (gm/dL) 3.7 02/15 2153 Albumin/Globulin Ratio 1.1 02/15 2153 Amylase (U/L) 87 11/18 2153 Lipase (U/L) 368 02/15 2153 Hematology WBC (K/MM3) 10.8 02/16 0550 RBC (M/mm3) 4.93 02/16 0550 Hgb (g/dL) 14.6 02/16 0550 Hct (%) 43.1 02/16 0550 MCV (fl) 87.5 02/16 0550 RDW (%) 12.6 02/16 0550 Plt Count (K/mm3) 274 02/16 0550 MPV (fl) 8.9 02/16 0550 Gran % (%) 89.2 02/16 0550 Gran # (K/mm3) 9.7 02/16 0550 Total Counted (#CELLS) 100 02/16 0550 Lymphocytes % (%) 4.9 02/16 0550 Monocytes % (%) 4.9 02/16 0550 Eosinophils % (%) 0.8 02/16 0550 Basophils % (%) 0.2 02/16 0550 Neutrophils (%) 78 02/16 0550 Band Neutrophils (%) 17 02/16 0550 Lymphocytes (Manual) (%) 4 02/16 0550 Lymphocytes # (K/mm3) 0.5 02/16 0550 Monocytes (Manual) (%) 1 02/16 0550 Monocytes # (K/mm3) 0.5 02/16 0550 Eosinophils # (K/mm3) 0.1 02/16 0550 Basophils # (K/MM3) 0.0 02/16 0550 RBC/WBC/PLT Morphology NORMAL 02/16 0550 Platelet Estimate NORMAL 02/16 0550 PUBS MCHC (g/dl) 34.0 02/16 0550 Immunology MCH (pg) 29.7 02/16 0550 Assessment findings Assessment Exam General appearance: no acute distress Cardiovascular: regular rate & rhythm Respiratory: no respiratory distress ABD: soft (some RUQ TTP) Patient plan Diagnoses: 1) early/developing acute calculus cholecystitis 2) sinus infection The patient states that he has improved and "wants to go home". Plan: Antibiotics Additional data: Prescription for Augmentin has been placed on the chart. Outpatient laparoscopic cholecystectomy scheduled for 14:00 on Monday 02/19. at 0737
[2017-02-17 08:00] VITALS: BP 120/65
--- NOTE | 2017-02-17 08:38 | ACUTE CARE PROGRESS NOTE (QUA) ---
Progress Notes Subjective Date 02/17/17 Time 0832 Note Patient is tired of being in the hospital and would like to have his GB out and go home since he is already here; His feels the same; did not sleep much last night; Took clear liquids this AM without nausea and vomiting; no stools; sore in the RUQ; ambulatory; has a persistent cough from sinus drainage. Objective Findings Vital Signs Date Time Temp Pulse Resp B/P Pulse O2 O2 Flow FiO2 Ox Delivery Rate 02/17 0800 98.1 78 20 120/65 94 ROOM AIR 02/17 0443 97.9 71 18 117/66 95 ROOM AIR 02/16 2127 99.4 85 18 115/76 97 02/16 2038 99.4 85 18 115/76 97 ROOM AIR 02/16 1541 99.6 84 20 145/99 95 ROOM AIR 02/16 0836 20 Current Medications Sodium Chloride 100 ML .STK-MED ONE IV (DC) Piperacillin Sod/Tazobactam Sod 0 .STK-MED ONE .ROUTE (DC) Sodium Chloride 100 ML .STK-MED ONE IV (DC) Piperacillin Sod/Tazobactam Sod 0 .STK-MED ONE .ROUTE (DC) Piperacillin Sod/Tazobactam Sod 4.5 GM Q6 IV Sodium Chloride 100 ML Sodium Chloride 100 ML .STK-MED ONE IV (DC) Piperacillin Sod/Tazobactam Sod 0 .STK-MED ONE .ROUTE (DC) Potassium Chloride/Dextrose/Sod Cl 1,000 ML .STK-MED ONE IV (DC) Potassium Chloride/Dextrose/Sod Cl 1,000 ML .[id number] IV Sodium Chloride 10 ML PRN PRN IV Hydromorphone HCl 1 MG Q4HP PRN IV Ondansetron HCl 4 MG Q6HP PRN IV Sodium Chloride 1,000 ML .[id number] IV (DC) Sodium Chloride 10 ML PRN PRN IV (DC) 02/16 1500 02/16 2300 02/17 0700 Intake Total 1318 Output Total Balance 1318 Intake, IV 1318 Last VS-Temp:98.1 B/P:120/65 Pulse:78 Resp:20 SaO2:94 ROOM AIR Last weight lbs:248 oz:1 K.521 Method:Bed Scales Exam General appearance: alert, active, no acute distress Cardiovascular: regular rate & rhythm Respiratory: clear to auscultation (bilat anterior and posterior) ABD: soft, bowel sounds present, tenderness (RUQ) Assessment/Plan Problem List 1. Abdominal pain Status: Acute 2. Cholecystitis with cholelithiasis Status: Acute 3. Nausea & vomiting Status: Acute 4. HTN (hypertension) Status: Chronic 5. Sleep apnea Status: Chronic Patient condition Improved Plan: Patient and will discuss discharge today with Dr. Cotton. This inpt stay is expected to cross 2 MNs from start of care Yes at 0837
[2017-02-17 16:19] VITALS: BP 137/79
--- NOTE | 2017-02-17 16:55 | ACUTE CARE PROGRESS NOTE (QUA) ---
Progress note: - Have had a long discussion with the patient and several times today. Discussed case with Dr. Ruby. I have reviewed tomorrow's operating room schedule. At this time plan will be for Dr. Ruby to perform cholecystectomy at 7 :30 tomorrow morning. at 2094
[2017-02-17 19:51] VITALS: BP 147/84
[2017-02-17 21:00] VITALS: BP 147/84
[2017-02-18] VITALS (16 sets, daily range): BP systolic 122–159; BP diastolic 63–98
--- NOTE | 2017-02-18 06:50 | SURGEON PROGRESS NOTE ---
Subjective data Subjective data: No new complaints Objective data Vitals,I&O,and Labs: Vital signs, intake and output,and available lab data for the last 24 hours is as noted below. Vital Signs Date Time Temp Pulse Resp B/P Pulse O2 O2 Flow FiO2 Ox Delivery Rate 02/18 0400 98.3 69 20 131/70 95 OXYGEN 02/17 2100 98.7 72 22 147/84 95 02/17 1951 98.7 72 22 147/84 95 ROOM AIR 02/17 1619 97.9 69 18 137/79 97 ROOM AIR 02/17 0856 98.1 78 20 120/65 94 02/17 0800 98.1 78 20 120/65 94 ROOM AIR 02/17 1500 02/17 2300 02/18 0700 Intake Total 480 1778 134 Output Total Balance 480 1778 134 Intake, IV 1778 134 Intake, Oral 480 Output, Stool Laboratory Tests Test Result Date Time Chemistry Sodium (mmoL/L) 140 02/16 0550 Potassium (mmoL/L) 3.6 02/16 0550 Chloride (mmoL/L) 100 02/16 0550 Carbon Dioxide (mmoL/L) 29 02/16 0550 BUN (mg/dL) 14 02/16 0550 Creatinine (mg/dL) 1.1 02/16 0550 Estimated Creat Clear (ML/MIN) 115 02/16 0550 Estimated GFR (MDRD) (ML/MIN) 69 02/16 0550 Glucose (mg/dL) 136 02/16 0550 Calcium (mg/dL) 9.2 02/16 0550 Total Bilirubin (mg/dL) 0.5 02/15 2153 AST (U/L) 24 02/15 2153 ALT (U/L) 40 02/15 2153 Alkaline Phosphatase (U/L) 64 02/15 2153 Troponin I (ng/mL) < 0.02 02/15 2153 Total Protein (gm/dL) 7.7 02/15 2153 Albumin (gm/dL) 4.0 02/15 2153 Globulin (gm/dL) 3.7 02/15 2153 Albumin/Globulin Ratio 1.1 02/15 2153 Amylase (U/L) 87 02/15 2153 Lipase (U/L) 368 02/15 2153 Hematology WBC (K/MM3) 10.8 02/16 05 RBC (M/mm3) 4.93 02/16 0550 Hgb (g/dL) 14.6 02/16 0550 Hct (%) 43.1 02/16 0550 MCV (fl) 87.5 02/16 0550 RDW (%) 12.6 02/16 0550 Plt Count (K/mm3) 274 02/16 0550 MPV (fl) 8.9 02/16 0550 Gran % (%) 89.2 02/16 0550 Gran # (K/mm3) 9.7 02/16 0550 Total Counted (#CELLS) 100 11 0550 Lymphocytes % (%) 4.9 02/16 0550 Monocytes % (%) 4.9 02/16 0550 Eosinophils % (%) 0.8 02/16 0550 Basophils % (%) 0.2 02/16 0550 Neutrophils (%) 78 02/16 0550 Band Neutrophils (%) 17 02/16 0550 Lymphocytes (Manual) (%) 4 02/16 0550 Lymphocytes # (K/mm3) 0.5 02/16 0550 Monocytes (Manual) (%) 1 02/16 0550 Monocytes # (K/mm3) 0.5 02/16 0550 Eosinophils # (K/mm3) 0.1 02/16 0550 Basophils # (K/MM3) 0.0 02/16 0550 RBC/WBC/PLT Morphology NORMAL 02/16 0550 Platelet Estimate NORMAL 02/16 0550 PUBS MCHC (g/dl) 34.0 02/16 0550 Immunology MCH (pg) 29.7 02/16 0550 Assessment findings Assessment Exam General appearance: no acute distress Cardiovascular: regular rate & rhythm Respiratory: no respiratory distress ABD: soft (some RUQ TTP) Patient plan Diagnoses: Calculus cholecystitis Plan: to OR this AM for darek ramirez at 0611
--- NOTE | 2017-02-18 09:15 | Operative Note ---
Surgeon/Diagnoses Surgeon/Supervisor Veneer(s) Date of procedure: 02/18/17 Surgeon: MD Carola Hernandez Supervisor Veneer(s): Speedy Peters Diagnoses Pre-op diagnosis: Acute calculus cholecystitis Post-op diagnosis Same Procedure Procedure Procedure: Laparoscopic cholecystectomy Indications: FIDELINA LIVINGSTON is a 61 year-old Male with a history of right upper quadrant pain and radiographic evidence of acute calculus cholecystitis. Findings: Severe wall thickening and pericholecystic fat stranding Severe acute inflammation in the pericholecystic region Procedure Description: After informed consent was obtained, the patient was taken to the operating room and placed in the supine position. General anesthesia was induced and the patient's abdomen was prepped and draped in a sterile fashion. After infiltration with local anesthetic an infraumbilical incision was made. A Veress needle was placed in position. The abdomen was insufflated. A 5 mm optical trocar was placed in position. Under direct visualization, 2 additional 5 mm trocars were placed in the RIGHT upper quadrant. A 12 mm trocar was placed in the subxiphoid position. The gallbladder was elevated up and over the liver margin. The tissue around the cystic duct was carefully dissected. Clips were placed proximally and the duct was transected at the infundibulum utilizing harmonic kimber. Harmonic kimber were then utilized to remove the gallbladder from the liver margin. The gallbladder was placed in a retrieval bag and removed through the subxiphoid trocar site. The RIGHT upper quadrant was thoroughly irrigated. No active bleeding or bile leak was noted. A Jasbir-Enamorado drain was placed in the gallbladder fossa and exited through the right lateral trocar site. The drain was secured with 2-0 Ethibond. The fascia at the subxiphoid trocar site was reapproximated utilizing 2-0 Ethibond after pneumoperitoneum was released. All remaining trocars were removed. All wounds were irrigated and skin was closed with 4-0 Monocryl in a subcuticular fashion. Steri-Strips were applied and the patient's anesthetic agents were reversed. After extubation, the patient was transferred to recovery in stable condition. EBL (ml): 100 Anesthesia: GETA Complications: No immediate Specimens: Gallbladder and contents Disposition Disposition: Stable recovery from where he will be transferred back to the floor. at 0915
--- NOTE | 2017-02-18 09:25 | Anesthesia Record ---
Anesthesia Record Part II Discharge time: 949 Destination: Second Floor PACU nurse assessment review? Yes Patient is: Stable Anesthesia complications? No at 1468
--- NOTE | 2017-02-18 09:25 | Anesthesia Record ---
Anesthesia Record Part I Total IV fluids: 1900 EBL (ml): 100 Urine Output: 0 B/P: 132/85 % SaO2: 95 Pulse: 72 Resps: 16 Temp: 97.4 Patient is: Drowsy, Nasal O2, Stable Stable to PACU at: 0920 at 0977
--- NOTE | 2017-02-18 13:26 | ACUTE CARE PROGRESS NOTE (QUA) ---
Progress Notes Subjective Date 02/18/17 Time 1323 Note Stable post-op. See Op note. Necessary to have drain. He is alert, NAD. Objective Findings Last VS-Temp:97.5 B/P:127/63 Pulse:68 Resp:16 SaO2:99 OXYGEN Last weight lbs:248 oz:1 K.521 Method:Bed Scales Assessment/Plan Problem List 1. Abdominal pain Status: Acute 2. Cholecystitis with cholelithiasis Status: Acute 3. Nausea & vomiting Status: Acute 4. HTN (hypertension) Status: Chronic 5. Sleep apnea Status: Chronic Patient condition Improving Plan: continue current care This inpt stay is expected to cross 2 MNs from start of care Yes at 1322
[2017-02-19 00:01] VITALS: BP 127/68
[2017-02-19 04:30] VITALS: BP 119/74
[2017-02-19 07:11] LABS: LYMPH # 0.9 K/mm3 (0.7-4.5); LYMPH % 9.6 % (10-50)
--- NOTE | 2017-02-19 07:24 | POST-OP PROGRESS NOTE ---
Post Op Subjective Data Patient is post-op day 1 Subjective data: Feels "a bit better" Post op objective data Vitals,I&O,and Labs: Vital signs, intake and output,and available lab data for the last 24 hours is as noted below. Vital Signs Date Time Temp Pulse Resp B/P Pulse O2 O2 Flow FiO2 Ox Delivery Rate 02/19 0430 97.7 63 16 119/74 97 ROOM AIR 02/19 0001 97.8 63 16 127/68 98 ROOM AIR 02/18 2115 98.0 70 16 122/75 95 02/18 1948 98.0 70 16 122/75 95 ROOM AIR 02/18 1716 16 02/18 1650 97.4 65 16 149/77 95 02/18 1550 98.0 68 16 137/83 100 02/18 1450 97.7 66 16 127/86 97 02/18 1411 2 02/18 1404 18 02/18 1350 97.7 63 16 159/98 98 02/18 1330 74 18 143/77 97 02/18 1250 97.5 82 16 153/82 94 02/18 1220 97.5 67 16 127/81 97 02/18 1150 97.5 66 16 150/80 98 02/18 1134 2 02/18 1120 97.5 68 16 127/63 99 2 02/18 1101 16 02/18 1100 2 02/18 1050 98.0 77 16 125/87 97 2 02/18 1045 97.4 02/18 1035 98.0 63 16 135/80 2 02/18 1020 98.0 64 16 125/90 95 2 02/18 1012 98.4 68 16 123/81 95 2 02/18 1005 98.4 68 16 123/81 95 2 02/18 1005 97.4 68 16 123/81 95 02/18 1000 97.9 68 16 134/80 95 ROOM AIR 02/18 0953 97.9 70 12 143/82 98 ROOM AIR 02/18 0950 97.5 71 16 136/77 98 ROOM AIR 02/18 0940 97.5 69 19 135/87 97 OXYGEN 02/18 0930 97.5 72 22 147/55 97 OXYGEN 02/18 0925 97.4 72 16 132/85 02/18 0920 97.4 72 16 132/85 95 ROOM AIR 02/18 1500 02/18 2300 02/19 0700 Intake Total 25 1368 1095 Output Total 585 80 Balance -560 1368 1015 Intake, IV 25 768 645 Intake, Oral 0 600 450 Intake, Tube 0 Irrigant Output, 0 Emesis Output, 0 Estimated Blood Loss Output, Other 185 80 Output, Urine 400 0 Patient 112.521 kg Weight Laboratory Tests Test Result Date Time Chemistry Sodium (mmoL/L) 140 02/16 0550 Potassium (mmoL/L) 3.6 02/16 0550 Chloride (mmoL/L) 100 02/16 0550 Carbon Dioxide (mmoL/L) 29 02/16 0550 BUN (mg/dL) 14 02/16 0550 Creatinine (mg/dL) 1.1 02/16 0550 Estimated Creat Clear (ML/MIN) 115 02/16 0550 Estimated GFR (MDRD) (ML/MIN) 69 02/16 0550 Glucose (mg/dL) 136 02/16 0550 Calcium (mg/dL) 9.2 02/16 0550 Total Bilirubin (mg/dL) 0.5 02/15 2153 AST (U/L) 24 02/15 2153 ALT (U/L) 40 02/15 2153 Alkaline Phosphatase (U/L) 64 02/15 2153 Troponin I (ng/mL) < 0.02 02/15 2153 Total Protein (gm/dL) 7.7 02/15 2153 Albumin (gm/dL) 4.0 02/15 2153 Globulin (gm/dL) 3.7 02/15 2153 Albumin/Globulin Ratio 1.1 02/15 2153 Amylase (U/L) 87 02/15 2153 Lipase (U/L) 368 02/15 2153 Hematology WBC (K/MM3) 10.8 02/16 0550 RBC (M/mm3) 4.93 02/16 550 Hgb (g/dL) 14.6 02/16 0550 Hct (%) 43.1 02/16 0550 MCV (fl) 87.5 02/16 0550 RDW (%) 12.6 02/16 0550 Plt Count (K/mm3) 274 02/16 05 MPV (fl) 8.9 02/16 05 Gran % (%) 89.2 02/16 0550 Gran # (K/mm3) 9.7 02/16 0550 Total Counted (#CELLS) 100 02/16 0550 Lymphocytes % (%) 4.9 02/16 0550 Monocytes % (%) 4.9 02/16 0550 Eosinophils % (%) 0.8 02/16 0550 Basophils % (%) 0.2 02/16 0550 Neutrophils (%) 78 02/16 0550 Band Neutrophils (%) 17 02/16 0550 Lymphocytes (Manual) (%) 4 02/16 0550 Lymphocytes # (K/mm3) 0.5 02/16 0550 Monocytes (Manual) (%) 1 02/16 0550 Monocytes # (K/mm3) 0.5 02/16 0550 Eosinophils # (K/mm3) 0.1 02/16 0550 Basophils # (K/MM3) 0.0 02/16 0550 RBC/WBC/PLT Morphology NORMAL 02/16 0550 Platelet Estimate NORMAL 02/16 0550 PUBS MCHC (g/dl) 34.0 02/16 0550 Immunology MCH (pg) 29.7 02/16 0550 Physical Exam VS/I&O Vital Signs Date Time Temp Pulse Resp B/P Pulse O2 O2 Flow FiO2 Ox Delivery Rate 02/19 0430 97.7 63 16 119/74 97 ROOM AIR 02/19 0001 97.8 63 16 127/68 98 ROOM AIR 02/185 98.0 70 16 122/75 95 02/18 1948 98.0 70 16 122/75 95 ROOM AIR 02/18 1716 16 02/18 1650 97.4 65 16 149/77 95 02/18 1550 98.0 68 16 137/83 100 02/18 1450 97.7 66 16 127/86 97 02/18 1411 2 02/18 1404 18 02/18 1350 97.7 63 16 159/98 98 02/18 1330 74 18 143/77 97 02/18 1250 97.5 82 16 153/82 94 02/18 1220 97.5 67 16 127/81 97 02/18 1150 97.5 66 16 150/80 98 02/18 1134 2 02/18 1120 97.5 68 16 127/63 99 2 02/18 1101 16 02/18 1100 2 02/18 1050 98.0 77 16 125/87 97 2 02/18 1045 97.4 02/18 1035 98.0 63 16 135/80 2 02/18 1020 98.0 64 16 125/90 95 2 02/18 1012 98.4 68 16 123/81 95 2 02/18 1005 98.4 68 16 123/81 95 2 02/18 1005 97.4 68 16 123/81 95 02/18 1000 97.9 68 16 134/80 95 ROOM AIR 02/18 0953 97.9 70 12 143/82 98 ROOM AIR 02/18 0950 97.5 71 16 136/77 98 ROOM AIR 02/18 0940 97.5 69 19 135/87 97 OXYGEN 02/18 0930 97.5 72 22 147/55 97 OXYGEN 02/18 0925 97.4 72 16 132/85 02/18 0920 97.4 72 16 132/85 95 ROOM AIR I&O 02/19 0700 Intake Total 2488 Output Total 665 Balance 1823 Intake, IV 1438 Intake, Oral 1050 Intake, Tube 0 Irrigant Output, 0 Emesis Output, 0 Estimated Blood Loss Output, Other 265 Output, Urine 400 Patient 112.521 kg Weight Exam General appearance no acute distress Respiratory no distress Cardiovascular regular rate and rhythm Abdomen soft (dressing dry. no cellulitis) Findings/Data BOGDAN in position Post op patient plan Diagnoses: Severe acute calculus cholecystitis-overall, doing well status post lap scopic cholecystectomy Plan: Ambulate This inpt stay is expected to cross 2 MNs from start of care Yes Additional data: Follow-up morning labs Possible discharge home later today with follow-up next week at 0723
[2017-02-19 07:35] LABS: HEMOGLOBIN 12.8 g/dL (14.1-18.0)
[2017-02-19 07:48] VITALS: BP 124/77
--- NOTE | 2017-02-19 08:18 | ACUTE CARE PROGRESS NOTE (QUA) ---
Progress Notes Subjective Date 02/19/17 Time 0814 Note Pt states he is feeling well today. Only has pain when he coughs. Has been doing well on his liquid diet. Slept well last night. Objective Findings Last VS-Temp:98.0 B/P:124/77 Pulse:67 Resp:18 SaO2:96 ROOM AIR Last weight lbs:248 oz:1 K.521 Method:Bed Scales Laboratory Tests 02/19/17 0651: Sodium 138, Potassium 4.0, Chloride 103, Carbon Dioxide 27, BUN 12, Creatinine 1.0, Estimated Creat Clear 127, Estimated GFR (MDRD) 76, Glucose 134 H, Calcium 8.8, Total Bilirubin 0.6, AST 38 H, ALT 62, Alkaline Phosphatase 46, Total Protein 7.0, Albumin 2.9 L, Globulin 4.1 H, Albumin/Globulin Ratio 0.7 L, WBC 8.9, RBC 4.30 L, Hgb 12.8 L, Hct 37.7 L, MCV 87.5, RDW 12.5, Plt Count 337, MPV 8.5, Gran % 84.6 H, Gran # 7.5, Lymphocytes % 9.6 L, Monocytes % 5.6, Eosinophils % 0.3, Basophils % 0.0 L, Lymphocytes # 0.9, Monocytes # 0.5, Eosinophils # 0.0, Basophils # 0.0, PUBS MCHC 34.0, MCH 29.7 Exam General appearance: alert, awake, no acute distress Cardiovascular: regular rate & rhythm Respiratory: clear to auscultation ABD: non-distended, normal bowel sounds, no rebound, soft, no guarding, ttp around incision sites, all dressings clean and dry except for the dressing with the drain Extremities: no peripheral edema Assessment/Plan Problem List 1. Abdominal pain Status: Acute 2. Cholecystitis with cholelithiasis Status: Acute 3. Nausea & vomiting Status: Acute 4. HTN (hypertension) Status: Chronic 5. Sleep apnea Status: Chronic Plan: Dr. Ruby has seen patient and is going to f/u on am labs. Possible discharge home today. This inpt stay is expected to cross 2 MNs from start of care Yes at 0817
[2017-02-19 09:22] VITALS: BP 124/77
--- NOTE | 2017-02-19 11:30 | ACUTE CARE PROGRESS NOTE (QUA) ---
Progress Notes Subjective Date 02/19/17 Time 1129 Assessment/Plan Problem List 1. Abdominal pain Status: Acute 2. Cholecystitis with cholelithiasis Status: Acute 3. Nausea & vomiting Status: Acute 4. HTN (hypertension) Status: Chronic 5. Sleep apnea Status: Chronic This inpt stay is expected to cross 2 MNs from start of care Yes Antibiotic Stewardship (2) Infxn that will respond? Yes Right drug,dose,and route? Yes More targeted antbx? No at 1122
[2017-02-19] MEDS ORDERED: HYDROCODONE BIT1 T41 PO (13:24)
[2017-02-19 14:09] VITALS: BP 124/77
== END 2017-02-19 15:30 | disposition home or self-care (01) ==
LOC: ER 21:35 → 2ND 23:52 → ER 23:52 → 2ND 02-16 00:38
PROVIDERS: Emergency Medicine; Surgery
PROC: 0FT44ZZ Resection of Gallbladder, Percutaneous Endoscopic Approach (ICD-10-PCS; principal; 2017-02-18 07:30)
DX: K80.00 Calculus of gallbladder with acute cholecystitis without obstruction (principal); I10 Essential (primary) hypertension
CPT/HCPCS: G0378; J0330; J2405; J2543; J2710

== ENCOUNTER → 2017-02-26 | Outpatient (CLI) | payer OTHER ==
[~2017-02-26] MED LIST changes: +HCTZ/TRIAMTEREN1 CAP PO; +HYDROCODONE BIT1 T41 PO; +METOPROLOL25 MG PO
[2017-02-26 11:43] LABS: BODY FLUID RBC 96 /mm3; BODY FLUID WBC 678 MM
[2017-02-26 12:53] LABS: BILIRUBIN, INDIRECT 0.31 mg/dL (0-0.9)
[2017-02-26 13:10] LABS: BODY FLUID MONONUCLEAR 63 %; BODY FLUID POLY 37 %
== END ==
LOC: LAB 10:34
PROVIDERS: Surgery
DX: K80.00 Calculus of gallbladder with acute cholecystitis without obstruction (principal)

== ENCOUNTER → 2017-02-27 | Outpatient (CLI) | payer OTHER ==
--- NOTE | 2017-02-27 10:39 | RADIOLOGY REPORT PS360 ---
[facility] HEPATOBILIARY SCAN HISTORY: Right upper quadrant pain following cholecystectomy, evaluate for bile leak RUQ PAIN ORDERING PHYSICIAN: REBECCA HERNANDEZ MD PATIENT AGE: 61 years COMPARISON: None DOSE: 8.4 mCi technetium Choletec FINDINGS: Homogeneous activity is present within the hepatic parenchyma. Medial activity noted within the hepatic parenchyma and within the biliary radicles, common bile duct, and duodenum. There is no evidence of extravasation that would indicate a bile leak. IMPRESSION: No evidence of bile leak. No evidence of biliary obstruction
== END ==
LOC: RAD 08:17
DX: K80.00 Calculus of gallbladder with acute cholecystitis without obstruction (principal)
CPT/HCPCS: A9537

== ENCOUNTER → 2017-03-11 | Outpatient (CLI) | payer OTHER ==
[2017-03-11 14:53] LABS: HEMOGLOBIN 13.5 g/dL (14.1-18.0); LYMPH # 1.8 K/mm3 (0.7-4.5); LYMPH % 24.6 % (10-50)
[2017-03-11 16:10] LABS: BUN 13 mg/dL (7-18)
[2017-03-11 16:11] LABS: GFR (ESTIMATED) 69 ML/MIN (>60)
== END ==
LOC: LAB 14:25
PROVIDERS: Surgery
DX: K80.00 Calculus of gallbladder with acute cholecystitis without obstruction (principal)